=== PATIENT | female | born 2000 ===

== ENCOUNTER 2025-05-02 11:28 | Inpatient (IN) | payer OTHER ==
[~2025-05-02] VITALS: Ht 162.6 cm; Wt 67.5 kg
[2025-05-02] MEDS ORDERED: Polyethylene Glycol 3350 17 gm PO PRN (13:05)
[2025-05-02] MEDS ORDERED: Aluminum Hydroxide 320MG/5ML 473 ML PO PRN (13:10)
[2025-05-02] MEDS ORDERED: Ondansetron 4 MG SoluTab MM PRN (13:10)
[2025-05-02] MEDS ORDERED: RAME8 PO (13:22)
[2025-05-02] MEDS ORDERED: BUPROPION XL450 MG PO (13:22)
[2025-05-02] MEDS ORDERED: Ativan1 MG PO (13:23)
[2025-05-02] MEDS ORDERED: BRINTELLIX20 MG PO (13:23)
[2025-05-02] MEDS ORDERED: AMPDEX5 PO (13:24)
--- NOTE | 2025-05-02 17:46 | NUR ---
SHIFT SUMMARY PT ARRIVED TO [facility] DIRECT ADMIT FROM [facility] AT APPROX 1206 TODAY. PT IS Ax0x4. PLEASANT AND COOPERATIVE WITH CARE. PT PRESENTED WITH SUICIDAL IDEATION WITHOUT INTENT AT THIS TIME. PT SHARED THAT THEY HAVE EXPERIENCED INCREASED STRESSORS D/T CURRENT HOUSING LEASE ENDING. PT REPORTS MINIMAL SUPPORT SYSTEM, WITH NO CURRENT JOB OR SCHOOLING. THEY REPORT THAT THE HARDEST PART IS FEELING "COMPLETELY ALONE." PT INITIALLY ARRIVED WITH SOME ANXIETY AND WAS PROVIDED AN ANTI-ANXIETY MEDICATION PER MASS SCORE WITH REPORTED RELIEF. PT'S ADMISSION WAS COMPLETED AND THEY WERE ORIENTED TO THEIR ROOM. THE PATIENT ALSO STATED THEY ARE NON-BINARY AND PREFERS THEY/THEM PRONOUNS, ALONG WITH THE PREFERRED NAME OF "RAY." UNIT STAFF MADE AWARE. PT IS CURRENTLY IN THE DINING ROOM HAVING DINNER WITH PEERS. THEY DENY ANY NEEDS AT THIS TIME AND APPEAR TO BE MINGLING APPROPRIATELY WITH PEERS AND STAFF. THEY ALSO HAVE ATTENDED GROUPS TODAY.
[2025-05-02 20:43] VITALS: BP 131/89
[2025-05-02] MEDS ORDERED: VORTIOXETINE 20 MG PO SCH (21:00)
--- NOTE | 2025-05-03 04:40 | NUR ---
SHIFT SUMMARY: PATIENT WAS IN THEIR ROOM AT THE BEGINNING OF THE SHIFT, LYING IN BED. THEY AWOKE TO THEIR NAME STATED SOFTLY. THEY PARTICIPATED IN ANIMAL CARE GIVER BY GIVING LOGICAL AND LINEAR ANSWERS. THEY DENIED SUICIDAL IDEATION, THOUGHTS OF SELF HARMING AND A/V/T HALLUCINATIONS. THEY WERE ABLE TO REMOVE THEIR LIP RINGS, BUT STILL HAVE FOUR EARRINGS, TWO IN EACH EAR, THAT ARE INTACT. THEY STATED THEY WERE "VERY TIRED TONIGHT". THEY PARTICIPATED IN SNACK AND WRAP UP GROUP AT 2030 IN THE DINING AREA, AND THEY WERE COMPLIANT WITH EVENING MEDICATIONS. TRINTELLIX WAS NOT AVAILABLE, IT IS A HOME MED AND IS IN THE PHARMACY AT THIS TIME, BUT WELLBUTRIN GIVEN PRESCRIBED. PATIENT ALSO REQUESTED MELATONIN FOR INSOMNIA, WHICH WAS GIVEN. PATIENT GOT UP AND C/O ANXIETY, 4 ON THE MASS SCALE, AND WAS GIVEN VISTARIL WITH GOOD EFFECT. THEY WERE IN BED RESTING WITH EYES CLOSED AND RESPIRATIONS CONFIRMED FOR THE REMAINDER OF THE SHIFT. CONTINUING TO MONITOR FOR SAFETY WITH Q15 MINUTE CHECKS.
[2025-05-03 07:57] LABS: CHOL/HDL RATIO 2.7; Cholesterol 156 mg/dL (50-200); HDL Cholesterol 57 mg/dL (>39); LDL/HDL RATIO 1.5; Low Density Lipoprotein Chol 87 mg/dL (0-110); Triglycerides 60 mg/dL (30-140); Very Low Density Lipoprot Chol 12 mg/dL (6-28)
[2025-05-03 08:27] VITALS: BP 132/80
[2025-05-03] MEDS ORDERED: Multivitamins 1 Tab PO SCH (09:00)
--- NOTE | 2025-05-03 11:40 | NUR ---
SHIFT ASSESSEMNT: PT DENIED SI, HI, AVH AND PAIN. PT REPORTED ANXIETY 4/10w. PT REPORTED THEIR MOOD , "AVERAGE." THEIR GOAL IS "FIGURE OUT TO NAVIGATE THIS STAY. PT HAS ATTENDED GROUPS AND BEEN IN THE PT MILIEU. PT HAS TWO EARRINGS IN BOTH EARS AND THEY ARE SECURE AND CLEAN. PT IS PLEASANT AND COOPERATIVE WITH CARE.
--- NOTE | 2025-05-03 13:12 | NUR ---
ASSUMED CARE OF PT, REPORT RECIEVED FROM KERI RAGLAND.
--- NOTE | 2025-05-03 17:38 | NUR ---
SHIFT NOTE PT HAS BEEN CALM AND COOPERATIVE THIS SHIFT. PT DENIES SI/HI/AVH. THERE HAVE BEEN NO ACUTE ACTIVITY TO REPORT SINCE THIS RN ASSUMED CARE. PT HAS ATTENDED GROUPS AND INTERACTED WELL WITH OTHER PATIENTS AND STAFF.
--- NOTE | 2025-05-04 04:48 | NUR ---
SHIFT SUMMARY: PATIENT WAS IN THE MILIEU DOING PUZZLES WITH PEERS AT THE BEGINNING OF THE SHIFT. THEY WERE LAUGHING AND TALKING PLEASANTLY. PATIENT STATED, "I FEEL LIKE I'M MAKING FRIENDS HERE." PATIENT WAS ABLE TO ANSWER STAFF TRAINING AND DEVELOPMENT MANAGER QUESTIONS IN A LOGICAL AND LINEAR MANNER. THEY DENIED SUICIDAL IDEATION, THOUGHTS OF SELF HARMING AND A/V/T HALLUCINATIONS. THEY STATED, "I DIDN'T REALIZE WHAT A PLEASANT TIME I WOULD HAVE HERE." PATIENT HAS FOUR EARRINGS, TWO IN EACH EAR, THAT ARE IN PLACE AND INTACT. PATIENT PARTICIPATED IN SNACK AND WRAP UP GROUP AT 2030 IN THE DINING AREA, AND WAS COMPLIANT WITH EVENING MEDICATIONS. THEY REQUESTED AMBIEN FOR INSOMNIA, AND LATER, REQUESTED VISTARIL FOR ANXIETY. BOTH WERE EFFECTIVE. THEY STAYED UP A SHORT TIME AFTER SNACK, READING IN BED, AND THEN WAS NOTED TO BE RESTING QUIETLY WITH EYES CLOSED AND RESPIRATIONS CONFIRMED FOR THE REMAINDER OF THE SHIFT. CONTINUING TO MONITOR FOR SAFETY WITH Q15 MINUTE CHECKS.
--- NOTE | 2025-05-04 07:50 | NUR ---
SHIFT ASSESSMENT: PT DENIED SI, HI, AVH AND PAIN. PT RATED THEIR ANXIETY 3/10w. PT DESCRIBED THEIR MOOD , "NEUTRAL." THEIR GOAL FOR THE DAY WAS TO TALK TO DWAIN ABOUT DISCHARGE PLANS. PT HAS BEEN PLEASANT AND COOPERATIVE TODAY. PT HAS BEEN ACITVE IN THE GROUPS AND THE PT MILIEU. PT HAS 2 EARRINGS IN EACH EAR THAT ARE CLEAN AND INTACT.
[2025-05-04 08:54] VITALS: BP 132/92
--- NOTE | 2025-05-05 04:33 | NUR ---
SHIFT SUMMARY: PATIENT HAS FOUR EARRINGS, TWO IN EACH EAR, THAT ARE INTACT. PATIENT WAS IN THE MILIEU AT THE BEGINNING OF THE SHIFT, PLAYING A GAME WITH PEERS. THEY WERE LAUGHING PLEASANTLY AND VERBALIZED ENJOYMENT OF "FRIENDS DOING FUN THINGS TOGETHER." THEY STATED, "I DIDN'T KNOW I COULD ACTUALLY HAVE FRIENDS." PATIENT STATED, "ONE OF THE MOST IMPORTANT THINGS TO ME IS TO NOT BE MISGENDERED." THEY CONSIDER THEMSELVES NON-BINARY AND APPRECIATE PRONOUNS THEY/THEM. THEY WERE ABLE TO ANSWER PHYSICIAN EXECUTIVE QUESTIONS IN A LOGICAL AND LINEAR MANNER. THEY DENIED SUICIDAL IDEATIONS, THOUGHTS OF SELF HARMING, AND A/V/T HALLUCINATIONS. THEY PARTICIPATED IN SNACK AND WRAP UP GROUP AT 2030, AND WERE COMPLIANT WITH EVENING MEDICATION ADMINISTRATION. THEY STAYED UP FOR A WHILE READING AND JOURNALING, AND THEN WAS NOTED TO BE RESTING QUIETLY WITH EYES CLOSED AND RESPIRATIONS CONFIRMED FOR THE REMAINDER OF THE SHIFT. CONTINUING TO MONITOR FOR SAFETY WITH 15 MINUTE CHECKS.
[2025-05-05 09:05] VITALS: BP 124/99
--- NOTE | 2025-05-05 17:31 | NUR ---
SHIFT SUMMARY: PT ALERT, ORIENTED, COOPERATIVE CARE AND APPEARS WELL GROOMED. THEY DENY SI, HI AND AVH. STATES THAT THEY SLEPT WELL LAST NIGHT BUT "HAD DREAMS" AFTER HAVING AMBIEN. STATES THAT THEIR MOOD IS "A LITTLE ON EDGE AND ANXIOUS". WAS MEDICATED PER EMAR FOR MASS SCORE OF 1 THIS AM. PT APPEARS CALM AND IS ENGAGED DURING COVERSATION. THEY ATTENDED GROUPS AND MEALS. PT NOTED ON THEIR MORNING CHECK IN SHEET THAT THEY WANT TO DISCUSS DISCHARGE PLANNING. THIS WAS DISCUSSED IN AM TEAM MEETING AND PLAN IS FOR DWAIN ASSOCIATE PROFESSOR OF COMMUNICATION RN TO FOLLOW UP FOR ASSISTANCE.
[2025-05-05 20:52] VITALS: BP 128/95
--- NOTE | 2025-05-06 05:21 | NUR ---
SHIFT SUMMARY: PT A/O X4. PLEASANT AND COOPERATIVE. MED COMPLIANT. DENIES SI, HI AND AVH. PT HAS EARRINGS PRESENT IN BOTH EARS. PT SMILES AND LAUGHS WITH PEERS IN ACTIVTIES. HAS BEEN DOING WORD SERCH PUZZLES AND WATCHING TV. PT EXCITED TO DISCUSS DISCHARGE ON THURSDAY WITH DWAIN RAGLANDBOLT LOADER. PT DOES EXPRESS THAT THEY DO NOT FEEL SAFE IF WAS TO DISCHAGE NOW. WAS UP IN TV ROOM UNTIL BED TIME. HAS BEEN SLEEPING . WILL CONTINUE TO MONITOR.
[2025-05-06 09:20] VITALS: BP 126/84
[2025-05-06 20:45] VITALS: BP 123/89
--- NOTE | 2025-05-07 04:40 | NUR ---
SHIFT SUMMARY: PATIENT WAS IN BED RESTING AT THE BEGINNING OF THE SHIFT. THEY DID NOT AWAKEN TO NAME STATED SOFTLY. PLATE GRINDER WAS DONE AFTER PATIENT WOKE UP. THEY WERE SMILING AND IN A PLEASANT MOOD, INTERACTING WELL WITH STAFF AND PEERS. THEY DENIED SUICIDAL IDEATION, THOUGHTS OF SELF HARMING AND A/V/T HALLUCINATIONS. THEY PARTICIPATED IN SNACK AND WRAP UP GROUP AT 2030 IN THE DINING AREA, AND THEY WERE SEEN ASSISTING PEERS IN TASKS SUCH OPENING JUICE OR COOKIES. THEY REMAINED UP FOR A TIME, INTERACTING WITH SELECT PEER IN A PLEASANT AND APPROPRIATE MANNER. THEY THEN WENT TO BED WHERE THEY WERE NOTED TO BE RESTING QUIETLY WITH EYES CLOSED AND RESPIRATIONS CONFIRMED FOR THE REMAINDER OF THE SHIFT. CONTINUING TO MONITOR FOR SAFETY WITH Q15 MINUTE CHECKS.
[2025-05-07 09:17] VITALS: BP 128/86
--- NOTE | 2025-05-07 09:35 | NUR ---
PT TO NURSES STATION REQUESTING HYDROXYZINE FOR INCREASED ANXIETY THAT THEY RATE AT 7/10. PT APPEARS CALM, TALKING AT REGULAR RATE AND SPEED. GOOD EYE CONACT. PROVIDED WITH HYDROXYZINE 50 MG PO PER EMAR AND MASS SCORE. PT RETURNED TO THE DAY ROOM AND IS PLAYING VIDEO GAMES.
--- NOTE | 2025-05-07 17:05 | NUR ---
SHIFT SUMMARY: PT IS ALERT, ORIENTED AND COOPERATIVE WITH CARE. DENIES SI, HI AND AVH. PT PLEASANT AND ENGAGED DURING CONVERSATIONS. APPROPRIATE EYE CONTACT AND EUTHYMIC AFFECT. STATED IN THE MORNING, "I AM FEELING A LITTLE ANXIOUS TODAY BUT I THINK IT WILL GET BETTER". LATER RETURNED TO THE NURSES STATION AND REQUESTED "SOMETHING FOR ANXIETY". REPORTED 7/10 ANXIETY AT THAT TIME. THEY APPEARED CALM AND WAS ABLE TO COMMUNICATE NEEDS WITHOUT DIFFICULTY. MEDICATED PER EMAR AND MASS SCORE. PT WAS ACTIVE IN THE MILIEU AND WAS PRESENT FOR MEALS. THEY SPENT TIME RESTING ON THEIR BED READING, IN THE DAY ROOM PLAYING VIDEO GAMES AND WATCHING TV.
[2025-05-07 20:40] VITALS: BP 122/85
--- NOTE | 2025-05-08 04:42 | NUR ---
SHIFT SUMMARY: PATIENT WAS IN HIS ROOM (HE NOW PREFERS HE/HIM) AT THE BEGINNING OF THE SHIFT, JOURNALING. HE STATED, "I'VE BEEN WRITING A LOT MORE SINCE COMING HERE". HE HAS FOUR EARRINGS, TWO IN EACH EAR, THAT ARE CLEAN AND INTACT. PATIENT IS FOCUSED ON DISCHARGE PLANNING. HIS MOTHER CALLED FROM [place] AND STATED THAT IF HE DISCHARGES BEFORE THREE ON THURSDAY, SHE HAS A RIDE SET UP FOR HIM WITH ONE OF HER COLLEAGUES WHOM DEEPAK KNOWS. MOTHER WANTS BUSINESS CONTINUITY PLANNER TO CALL HER. EMAIL SENT TO BUSINESS CONTINUITY PLANNER REGARDING THIS CONVERSATION. PATIENT WAS ABLE TO ANSWER ROUGE SIFTER QUESTIONS IN A LOGICAL AND LINEAR MANNER. HE DENIED SUICIDAL IDEATION, THOUGHTS OF SELF HARMING AND A/V/T HALLUCINATIONS. HE STATED HE'S BEEN "SLEEPING OKAY" AND HAS NO PHYSICAL PAIN, AND "NO ANXIETY RIGHT NOW". HE PARTICIPATED IN SNACK AND WRAP UP GROUP AT 2030 IN THE DINING AREA, AND WAS COMPLIANT WITH EVENING MEDICATIONS. HE REQUESTED AND WAS GIVEN AN AMBIEN FOR INSOMNIA, STATING, "IT HAS BEEN HELPING". IT WAS EFFECTIVE. PATIENT STOOD IN THE MILIEU TALKING WITH SELECT MALE PEER PLEASANTLY AND APPROPRIATELY FOR A TIME, THEN WATCHED A MOVIE WITH STAFF AND PEERS. HE THEN WENT TO HIS ROOM WHERE HE WAS NOTED TO BE IN BED RESTING WITH EYES CLOSED AND RESPIRATIONS CONFIRMED FOR THE REMAINDER OF THE SHIFT. CONTINUING TO MONITOR FOR SAFETY WITH Q15 MINUTE CHECKS.
[2025-05-08 09:06] VITALS: BP 114/84
--- NOTE | 2025-05-08 12:33 | NUR ---
IMPORTANT DISCHARGE INFORMATION PATIENT WILL BE DISCHARGING ON 05/09/2025 AROUND 1PM. SHE HAS A FRIEND RODERICK WHO WILL BE PICKING HER UP. ALL PARTIES VERBALIZE AN UNDERSTANDING. PATIENT HAS FOLLOW UP AT PCP'S OFFICE ON THURSDAY, AT 10:00AM. PATIENT CAN FOLLOW UP WITH [facility] IN [place]. PATIENT CAN FOLLOW UP WITH THE [facility] FOR CONTINUED PATIENT CARE AND SUPPORT. PHARMACY: [facility] FAX NUMBER
--- NOTE | 2025-05-08 18:11 | NUR ---
SHIFT SUMMARY PT A/O X4; PLEASANT AND COOPERATIVE WITH CARE. DENIES SI, HI, AVTH. AFFECT IS CONGRUENT TO STATED MOOD. AT THE BEGINNING OF THE SHIFT THEY SAID THAT THEY WERE DOING MUCH BETTER THAN YESTERDAY, BUT BECAME MORE ANXIOUS THE DAY PROGRESSED. PT TO POSSIBLY DISCHARGE TOMORROW AND MAY BE RELOCATING TO [place]. PT REPORTS FEELING OVERWHELMED AND WAS TEARFUL THIS AFTERNOON. PT MEDICATED PER EMR FOR ANXIETY WITH GOOD EFFECT. PT ATTENDED ALL GROUPS AND MEALS THIS SHIFT.
[2025-05-08 20:26] VITALS: BP 142/94
--- NOTE | 2025-05-09 04:32 | NUR ---
SHIFT SUMMARY: PATIENT WAS UP IN THE MILIEU AT THE BEGINNING OF THE SHIFT, INTERACTING WITH STAFF AND PEERS IN A PLEASANT AND APPROPRIATE MANNER. HE STATED THAT HE HAD "A PRETTY GOOD DAY" BUT IT HAD "EMOTIONAL MOMENTS. I FEEL SAFE HERE, AND THERE ARE CHANGES COMING. I KNOW THEY WILL MOSTLY BE GOOD, BUT I'M ANXIOUS ABOUT IT." HE WAS REMINDED THAT HE HAS COPING SKILLS AND A LIST OF TELEPHONE NUMBERS, WELL A SUPPORTIVE FAMILY, HE HAS EXPRESSED. HE WAS ABLE TO PARTICIPATE IN PEWTER FABRICATOR IN A LOGICAL AND LINEAR MANNER. HE DENIED SUICIDAL IDEATION, THOUGHTS OF SELF HARMING AND A/V/T HALLUCINATIONS. HE PARTICIPATED IN SNACK AND WRAP UP GROUP, AND WAS COMPLIANT WITH EVENING MEDICATIONS. AFTER SNACK, HE SPENT TIME WITH PEERS AND STAFF IN THE DAY ROOM. HE REQUESTED AND WAS GIVEN AMBIEN FOR INSOMNIA, WHICH WAS EFFECTIVE. HE WENT TO BED AT 2200 AND WAS NOTED TO BE RESTING QUIETLY WITH EYES CLOSED AND RESPIRATIONS CONFIRMED FOR THE REMAINDER OF THE SHIFT. CONTINUING TO MONITOR FOR SAFETY WITH Q15 MINUTE CHECKS.
[2025-05-09] MEDS ORDERED: BUPROPION XL150 M1 PO (09:30)
[2025-05-09] MEDS ORDERED: HYDPAM50 PO (09:31)
[2025-05-09] MEDS ORDERED: TRAZ50 PO (09:32)
[2025-05-09] MEDS ORDERED: ZOLP5 PO (09:36)
--- NOTE | 2025-05-09 13:23 | NUR ---
DISCHARGE PT A/O X4; PLEASANT AND COOPERATIVE WITH CARE. PT DENIES SI, HI, AVTH AND AFFECT IS CONGRUENT WITH STATED MOOD. PT MET WITH HOT DIP PLATING SUPERVISOR THIS MORNING AND COMPLETED SAFETY PLAN. MEDICATIONS CALLED TO [facility] PER PT REQUEST. DISCHARGE INSTRUCTIONS GONE OVER WITH PATIENT AND RESOURCES GIVEN TO PT FOR IF THEY GO TO [place] OR STATE IN [place]. PT VERBALIZED UNDERSTANDING. BELONGINGS RETURNED AND PT WAS PICKED UP BY THEIR FRIEND. PT LEFT UNIT AT 1319.
== END 2025-05-09 13:19 | disposition home or self-care (01) | DRG 885 ==
LOC: BHU 11:28
PROVIDERS: ADMIT Psychiatry & Neurology Psychiatry
DX: F33.2 Major depressive disorder, recurrent severe without psychotic features (principal); R45.851 Suicidal ideations; Z88.1 Allergy status to other antibiotic agents; Z88.0 Allergy status to penicillin; Z98.890 Other specified postprocedural states; Z79.899 Other long term (current) drug therapy; Z90.49 Acquired absence of other specified parts of digestive tract; Z90.81 Acquired absence of spleen
CPT/HCPCS: 36415; 80061; 83036; A9270